=== PATIENT | female | born 1955 | race Caucasian/White ===

== ENCOUNTER → 2016-10-16 | Outpatient (CLI) | payer BC ==
[2014-05-19 10:30] VITALS: BP 108/63
[~2016-10-16] MED LIST: HYDR1TAB10 PO; LEVO500T59 PO; LEVO50TA5 PO; TAMS0.4C97 PO
--- NOTE | 2016-10-16 10:49 | RAD ---
DEXA scan 10/16/2016 Clinical history: Risk factors for osteoporosis. Postmenopausal female. Technique: DEXA of the lumbar spine and right hip was performed. FINDINGS: The mean bone mineral density of the lumbar spine is 1.067 g/sq cm. This corresponds to a T score of -0.9. This is consistent with borderline osteopenia. The mean bone mineral density of the right hip is 0.828 g/sq cm. This corresponds to a T score of -1.5. This is consistent with mild osteopenia. IMPRESSION: 1. Borderline osteopenia lumbar spine. 2. Mild osteopenia of the right hip. According to World Health Organization, the definition of osteoporosis and osteopenia for women is as follows: Normal = T score at or above -1.0 SD. Osteopenia = T score between -1.0 and -2.5 SD. Osteoporosis = T score at or below -2.5 SD.
--- NOTE | 2016-11-06 08:43 | RAD ---
DATE: 10/16/2016 EXAM: DIGITAL SCREEN BILAT W/CAD HISTORY: Screening COMPARISON: None. This study was interpreted with the benefit of Computerized Aided Detection (CAD). FINDINGS: Breast Density: SCATTERED The breast parenchyma shows scattered fibroglandular densities. Breast parenchyma level B. There is a group of punctate calcifications in the left breast. Coned compression magnification imaging and a ML view are suggested for additional evaluation. The right breast appears unremarkable. IMPRESSION: Calcifications left breast. Additional imaging suggested as outlined above BI-RADS CATEGORY: 0 INCOMPLETE: NEED ADDITIONAL IMAGING EVAULATION AND/OR PRIOR MAMMOGRAMS FOR COMPARISON RECOMMENDED FOLLOW-UP: ADD ADDITIONAL IMAGING PQRS compliance statement: Patient information was entered into a reminder system with a target due date soon for the next mammogram. Mammography is a sensitive method for finding small breast cancers, but it does not detect them all and is not a substitute for careful clinical examination. A negative mammogram does not negate a clinically suspicious finding and should not result in delay in biopsying a clinically suspicious abnormality. "Our facility is accredited by the [employer] Mammography Program."
== END | disposition home or self-care (01) ==
LOC: DXRAD 09:45
PROVIDERS: ATTEND Family Medicine
DX: Z12.31 Encounter for screening mammogram for malignant neoplasm of breast (principal); M85.88 Other specified disorders of bone density and structure, other site; E03.9 Hypothyroidism, unspecified; Z78.0 Asymptomatic menopausal state
CPT/HCPCS: 77080; G0202; 77067

== ENCOUNTER 2017-01-24 10:15 | Emergency (ER) | payer BC ==
[~2017-01-24] VITALS: Ht 162.6 cm; Wt 59.0 kg
[2017-01-24] MEDS ORDERED: ONDANSETRON PF 4 MG/2 ML VIAL. IV ONE ×2 (10:45)
[2017-01-24] MEDS ORDERED: MORPHINE SULFATE 2 MG/ML DISP.SYRIN. IV ONE (10:45)
[2017-01-24] MEDS ORDERED: IV NORMAL SALINE 1,000ML 1,000 ML IV ONE (10:45)
[2017-01-24 10:47] LABS: BASO # 0.1 x10^3/uL (0.0-0.2); BASO % 1 % (0-3); EOS # 0.1 x10^3/uL (0.0-0.7); EOS % 1 % (0-3); HEMATOCRIT 43.5 % (36.0-47.0); HEMOGLOBIN 14.9 g/dL (12.0-15.5); LYMPH # 2.1 x10^3/uL (1.0-4.8); LYMPH % 16 % (24-48); MEAN CORPUSCULAR HEMOGLOBIN 32 pg (25-35); MEAN CORPUSCULAR HGB CONC 34 g/dL (31-37); MEAN CORPUSCULAR VOLUME 94 fL (79-100); MONO # 0.7 x10^3/uL (0.0-1.1); MONO % 5 % (0-9); NEUT # 10.3 x10^3uL (1.8-7.7); NEUT % 78 % (31-73); PLATELET COUNT 238 x10^3/uL (140-400); RED BLOOD COUNT 4.65 x10^6/uL (3.50-5.40); RED CELL DISTRIBUTION WIDTH 13.6 % (11.5-14.5); WHITE BLOOD COUNT 13.2 x10^3/uL (4.0-11.0)
[2017-01-24 10:59] LABS: ALBUMIN 3.7 g/dL (3.4-5.0); ALBUMIN/GLOBULIN RATIO 0.8 (1.0-1.7); CALCIUM 9.4 mg/dL (8.5-10.1); CREATININE 0.9 mg/dL (0.6-1.0); GFR 63.9; POTASSIUM 3.7 mmol/L (3.5-5.1); TOTAL BILIRUBIN 0.5 mg/dL (0.2-1.0); TOTAL PROTEIN 8.4 g/dL (6.4-8.2)
[2017-01-24] MEDS ORDERED: IOHEXOL 240 MG/ML 50ML VIAL. ONE (11:04)
[2017-01-24 11:08] LABS: COLOR,URINE YELLOW
[2017-01-24 11:09] LABS: BACTERIA,URINE FEW /HPF (0-FEW); BILIRUBIN,URINE NEG (NEG); CLARITY,URINE CLOUDY; GLUCOSE,URINE NEG (NEG); HYALINE CASTS, URINE OCC /HPF; NITRITE,URINE NEG (NEG); RBC,URINE >40 /HPF (0-2); UROBILINOGEN,URINE 1 mg/dL (0.2 mg/dL)
[2017-01-24 11:10] LABS: SQUAMOUS EPITHELIAL CELL,UR FEW /LPF
[2017-01-24] MEDS ORDERED: IOHEXOL 240 MG/ML 50ML VIAL. PO ONE (11:30)
[2017-01-24] MEDS ORDERED: IOHEXOL 300 MG/ML 75 ML VIAL. IV ONE (11:30)
--- NOTE | 2017-01-24 12:24 | RAD ---
CT scan of the abdomen and pelvis with IV contrast: History: Abdominal pain since exam. Comparison:May 19, 2014. Procedure: Contiguous axial images of the abdomen and pelvis were performed after the administration of 75 cc of Isovue 370 IV contrast and oral contrast. Findings: Liver: Unremarkable. Spleen: Unremarkable. Pancreas: Unremarkable. Adrenal Glands: Unremarkable. Right Kidney: There is moderate right hydroureter and hydronephrosis with mild perinephric edema. There are tiny nonobstructive stones in the right renal pelvis. There has been prior cholecystectomy. The common bile duct is mildly dilated pelvis seen previously. . Left Kidney: Unremarkable. Aorta: Normal. There is no mass or lymphadenopathy. There is no free air. There is no free fluid. CT pelvis with contrast: The appendix is normal. The urinary bladder appears normal. The uterus and ovaries are not seen and could be small or surgically removed. There is a 5 mm stone in the distal right ureter. Impression: 1. 5 mm stone in the distal right ureter with moderate right hydroureter and right hydronephrosis and mild perinephric edema. Although this is felt to be acute is interesting that there was a very similar appearance in the prior study. 2. The common bile duct and the intrahepatic biliary tree are mildly dilated however, this was seen previously and is not unusual in a postcholecystectomy patient. PQRS Compliance Statement: One or more of the following individualized dose reduction techniques were utilized for this examination: 1. Automated exposure control 2. Adjustment of the mA and/or kV according to patient size 3. Use of iterative reconstruction technique
[2017-01-24 12:53] VITALS: BP 112/67
[2017-01-24] MEDS ORDERED: HYDR-971 PO (12:57)
[2017-01-24] MEDS ORDERED: TAMS0.4C97 PO (12:57)
[2017-01-24] MEDS ORDERED: SULF1TAB24 PO (12:57)
--- NOTE | 2017-01-24 12:57 | PHYS DOC ---
Past History Past Medical History: Kidney Stones, Other Past Surgical History: Cholecystectomy, Hysterectomy, Other Additional Smoking Information: / ppd Alcohol Use: None Drug Use: None Adult General Chief Complaint Chief Complaint: NAUSEA/VOMITING/DIARRHEA HPI HPI Patient is a 61 year old F who presents with RLQ abdominal pain that started this morning around 6am. She describes the pain as sharp and constant with wave like intense episodes that last about half an hour at a time. She does have a history of kidney stones however she feels that this is not similar to her previous kidney stone as it is in the front and not in her back. Her most recent kidney stone was May 192014. She denies urinary frequency, dysuria or urgency. She denies fever sweats or chills. She states that she's had normal bowel movements recently. She does have nausea. She has no other associated symptoms. She has no exacerbating or alleviating factors. Review of Systems Review of Systems Constitutional: Denies fever or chills [] Eyes: Denies change in visual acuity, redness, or eye pain [] HENT: Denies nasal congestion or sore throat [] Respiratory: Denies cough or shortness of breath [] Cardiovascular: No additional information not addressed in HPI [] GI: Negative except history of present illness : Denies dysuria or hematuria [] Musculoskeletal: Denies back pain or joint pain [] Integument: Denies rash or skin lesions [] Neurologic: Denies headache, focal weakness or sensory changes [] Endocrine: Negative except history of present illness All other systems were reviewed and found to be within normal limits, except as documented in this note. Family History Family History Noncontributory Current Medications Current Medications Medications reviewed Current Medications Medications (Trade) Dose Ordered Sig/Elen Start Time Stop Time Status Last Admin Dose Admin Iohexol (Omnipaque 240 Mg/ml) 50 ml 1X ONCE 01/24/17 11:30 01/24/17 11:31 DC 01/24/17 12:04 50 ML Iohexol (Omnipaque 300 Mg/ml) 75 ml 1X ONCE 01/24/17 11:30 01/24/17 11:31 DC 01/24/17 12:03 75 ML Morphine Sulfate (Morphine 2mg Syringe) 2 mg 1X ONCE 01/24/17 10:45 01/24/17 10:46 DC 01/24/17 10:43 2 MG Ondansetron HCl (Zofran) 4 mg 1X ONCE 01/24/17 10:45 01/24/17 10:46 DC 01/24/17 10:43 4 MG Sodium Chloride 1,000 ml @ 1,000 mls/hr 1X ONCE 01/24/17 10:45 01/24/17 11:44 DC 01/24/17 10:43 1,000 MLS/HR Allergies Allergies Allergies Coded Allergies Type Severity Reaction Last Updated Verified No Known Drug Allergies 05/19/14 No Physical Exam Physical Exam Constitutional: Well developed, well nourished, no acute distress, non-toxic appearance. [] HENT: Normocephalic, atraumatic, bilateral external ears normal, oropharynx moist, no oral exudates, nose normal. [] Eyes: EOMI, conjunctiva normal, no discharge. [] Neck: Normal range of motion, no tenderness, supple, no stridor. [] Cardiovascular:Heart rate regular rhythm, Lungs & Thorax: Bilateral breath sounds clear to auscultation [] Abdomen: Bowel sounds normal, soft, no masses, no pulsatile masses. Moderate RLQ TTP with radiating pain Skin: Warm, dry, no erythema, no rash. [] Back: No tenderness, no CVA tenderness. [] Extremities: No tenderness, no cyanosis, no clubbing, ROM intact, no edema. [] Neurologic: Alert and oriented X 3, normal motor function, normal sensory function, no focal deficits noted. [] Psychologic: Affect normal, judgement normal, mood normal. [] Current Patient Data Vital Signs Vital Signs Date Time Temp Pulse Resp B/P (MAP) Pulse Ox O2 Delivery O2 Flow Rate FiO2 01/24/17 11:18 66 20 127/73 (91) 99 Room Air 01/24/17 10:15 97.7 Lab Results Laboratory Tests Test 01/24/17 10:30 01/24/17 10:34 Urine Collection Type Unknown Urine Color Yellow Urine Clarity Cloudy Urine pH 6.5 Urine Specific [place] 1.015 Urine Protein Neg (NEG-TRACE) Urine Glucose (UA) Neg mg/dL (NEG) Urine Ketones (Stick) Neg mg/dL (NEG) Urine Blood Large (NEG) Urine Nitrite Neg (NEG) Urine Bilirubin Neg (NEG) Urine Urobilinogen Dipstick 1 mg/dL (0.2 mg/dL) Urine Leukocyte Esterase Trace (NEG) Urine RBC >40 /HPF (0-2) Urine WBC 5-10 /HPF (0-4) Urine Squamous Epithelial Cells Few /LPF Urine Transitional Epithelial Cells Few /LPF Urine Bacteria Few /HPF (0-FEW) Urine Hyaline Casts Occ /HPF Urine Mucus Slight /LPF White Blood Count 13.2 x10^3/uL (4.0-11.0) H Red Blood Count 4.65 x10^6/uL (3.50-5.40) Hemoglobin 14.9 g/dL (12.0-15.5) Hematocrit 43.5 % (36.0-47.0) Mean Corpuscular Volume 94 fL (79-100) Mean Corpuscular Hemoglobin 32 pg (25-35) Mean Corpuscular Hemoglobin Concent 34 g/dL (31-37) Red Cell Distribution Width 13.6 % (11.5-14.5) Platelet Count 238 x10^3/uL (140-400) Neutrophils (%) (Auto) 78 % (31-73) H Lymphocytes (%) (Auto) 16 % (24-48) L Monocytes (%) (Auto) 5 % (0-9) Eosinophils (%) (Auto) 1 % (0-3) Basophils (%) (Auto) 1 % (0-3) Neutrophils # (Auto) 10.3 x10^3uL (1.8-7.7) H Lymphocytes # (Auto) 2.1 x10^3/uL (1.0-4.8) Monocytes # (Auto) 0.7 x10^3/uL (0.0-1.1) Eosinophils # (Auto) 0.1 x10^3/uL (0.0-0.7) Basophils # (Auto) 0.1 x10^3/uL (0.0-0.2) Sodium Level 143 mmol/L (136-145) Potassium Level 3.7 mmol/L (3.5-5.1) Chloride Level 105 mmol/L (98-107) Carbon Dioxide Level 30 mmol/L (21-32) Anion Gap 8 (6-14) Blood Urea Nitrogen 16 mg/dL (7-20) Creatinine 0.9 mg/dL (0.6-1.0) Estimated GFR (Cockcroft-Gault) 63.9 BUN/Creatinine Ratio 18 (6-20) Glucose Level 96 mg/dL (70-99) Calcium Level 9.4 mg/dL (8.5-10.1) Total Bilirubin 0.5 mg/dL (0.2-1.0) Aspartate Amino Transferase (AST) 20 U/L (15-37) Alanine Aminotransferase (ALT) 21 U/L (14-59) Alkaline Phosphatase 87 U/L (46-116) Total Protein 8.4 g/dL (6.4-8.2) H Albumin 3.7 g/dL (3.4-5.0) Albumin/Globulin Ratio 0.8 (1.0-1.7) L EKG EKG [] Radiology/Procedures Radiology/Procedures CT abd/pelvis - 5mm R ureteral stone. Please refer to radiology report for details. Course & Med Decision Making Course & Med Decision Making Pertinent Labs and Imaging studies reviewed. (See chart for details) Given the history of possible prolonged right ureteral kidney stone and bacteria in the urine she was started on an antibiotic for UTI. This was done despite being asymptomatic due to increase risk for sepsis related to UTIs in the setting of kidney stones. Dragon Disclaimer Dragon Disclaimer This electronic medical record was generated, in whole or in part, using a voice recognition dictation system. Departure Departure: Impression: Primary Impression: Nephrolithiasis Disposition: 01 HOME, SELF-CARE Condition: STABLE Referrals: JOHN TANNER MD (PCP) Patient Instructions: Diet for Kidney Stones, Kidney Stones Additional Instructions: Lashay was seen in the emergency department for right lower quadrant abdominal pain. No emergency medical condition was found on history or physical exam. She did have labs and imaging which showed a 5 mm right-sided kidney stone and signs of possible urinary tract infection. She was given antibiotics to treat infection, pain medication and Flomax to assist with passing her stone. She was also given a screaming advised to screen her urine. She is advised follow-up with urology as soon as possible for further management. [facility] [place]. Their phone number is [phone]. Scripts Sulfamethoxazole/Trimethoprim (BACTRIM DS TABLET) 1 Each Tablet 1 TAB PO BID for 7 Days, #14 TAB Prov: KAMILAH FAYE MD 01/24/17 Hydrocodone Bit/Acetaminophen (NORCO 5-325 TABLET) 1 Each Tablet 1 TAB PO TID for 3 Days, #9 TAB Prov: KAMILAH FAYE MD 01/24/17 Tamsulosin Hcl (FLOMAX) 0.4 Mg Cap.er.24h 1 CAP PO DAILY for 14 Days, #14 CAP 11 Refills Prov: KAMILAH FAYE MD 01/24/17 KAMILAH FAYE MD Jan 24, 2017 12:57
[2017-01-24] MEDS ORDERED: TAMSULOSIN 0.4 MG CAP.ER.24H. PO ONE (13:15)
== END 2017-01-24 13:23 | disposition home or self-care (01) ==
LOC: ER 10:15
DX: N20.0 Calculus of kidney (principal); F17.210 Nicotine dependence, cigarettes, uncomplicated; Z87.442 Personal history of urinary calculi; Z90.49 Acquired absence of other specified parts of digestive tract; Z90.710 Acquired absence of both cervix and uterus
CPT/HCPCS: 36415; 74177; 80053; 81001; 85025; 87086; 96361; 96374; 96375; 99285; J2270; J2405; Q9966; Q9967; J7030

== ENCOUNTER 2017-12-28 17:48 | Emergency (ER) | payer BC ==
[~2017-12-28] VITALS: Ht 162.6 cm; Wt 62.9 kg
[~2017-12-28 17:48] MED LIST changes: +HYDR-971 PO; +SULF1TAB24 PO
--- NOTE | 2017-12-28 18:28 | EKG ---
[address] [address] Test Date: 2017-12-28 Test Time: 18:03:51 Pat Name: GENE CABAN Department: Room: Gender: F Systems Administration Analyst: : [id number] Requested By: LEAH MURRELL Order Number: [id number] Reading MD: Amari Sommers MD Measurements Intervals [place] Rate: 63 P: 50 NM: 154 QRS: -13 QRSD: 92 T: 25 QT: 444 QTc: 458 Interpretive Statements SINUS RHYTHM Electronically Signed On 12-31-2017 10:04:32 DIRECTOR ENERGY by Amari Sommers MD
--- NOTE | 2017-12-28 18:42 | PHYS DOC ---
Past History Past Medical History: Kidney Stones, Other Past Surgical History: Cholecystectomy, Hysterectomy, Other Alcohol Use: None Drug Use: None Adult General Chief Complaint Chief Complaint: HYPERTENSION HPI HPI Patient is a 62-year-old female who presents with complaint of acute onset of dizziness that started at about 4:30 this morning. Patient states that she was woken up this morning feeling nauseated. She states that when she went to get up out of bed, she realized that she was very dizzy, feeling like the room is spinning. She states that she had to hold onto the wall so that she wouldn't fall. She states that when the dizziness gets worse the nausea gets worse. She denies any headache. Patient also indicates that she noticed that her blood pressure has been much more elevated than his usual. She denies any chest pain or shortness of breath. Review of Systems Review of Systems Constitutional: Denies fever or chills [] Eyes: Denies change in visual acuity, redness, or eye pain [] Respiratory: Denies cough or shortness of breath [] Cardiovascular: No additional information not addressed in HPI [] GI: Denies abdominal pain. Admits to nausea. [] Neurologic: Denies headache, focal weakness or sensory changes. Complains of vertiginous dizziness. [] All other systems were reviewed and found to be within normal limits, except as documented in this note. Current Medications Current Medications Current Medications Medications (Trade) Dose Ordered Sig/[facility] Start Time Stop Time Status Last Admin Dose Admin Lorazepam (Ativan) 0.5 mg 1X ONCE 12/28/17 18:45 12/28/17 18:46 Meclizine HCl (Antivert) 25 mg PRN Q6HRS PRN 12/28/17 18:30 Ondansetron HCl (Zofran) 4 mg 1X ONCE 12/28/17 18:45 12/28/17 18:46 Sodium Chloride 1,000 ml @ 1,000 mls/hr Q1H 12/28/17 18:30 12/28/17 19:29 Allergies Allergies Allergies Coded Allergies Type Severity Reaction Last Updated Verified No Known Drug Allergies 05/19/14 No Physical Exam Physical Exam Constitutional: Well developed, well nourished, no acute distress, non-toxic appearance. [] HENT: Normocephalic, atraumatic, bilateral external ears normal, oropharynx moist, no oral exudates, nose normal. [] Eyes: PERRLA, EOMI, conjunctiva normal, no discharge. [] Neck: Normal range of motion, no tenderness, supple, no stridor. [] Cardiovascular:Heart rate regular rhythm [] Lungs & Thorax: Bilateral breath sounds clear to auscultation [] Abdomen: Bowel sounds normal, soft, no tenderness. [] Skin: Warm, dry, no erythema, no rash. [] Extremities: No tenderness, no cyanosis, no clubbing, ROM intact, no edema. [] Neurologic: Alert and oriented X 3, normal motor function, normal sensory function, no focal deficits noted. [] EKG EKG EKG demonstrates a normal sinus rhythm with rate of 63.[] Radiology/Procedures Radiology/Procedures [] Impressions: CT of the head without contrast demonstrates no acute intracranial abnormalities. Course & Med Decision Making Course & Med Decision Making Pertinent Labs and Imaging studies reviewed. (See chart for details) [] Dragon Disclaimer Dragon Disclaimer This electronic medical record was generated, in whole or in part, using a voice recognition dictation system. Departure Departure: Impression: Primary Impression: Benign paroxysmal positional vertigo Disposition: HOME, SELF-CARE Condition: STABLE Referrals: JOHN TANNER MD (PCP) Patient Instructions: Benign Positional Vertigo Scripts Metoclopramide Hcl (REGLAN) 10 Mg Tablet 1 TAB PO QID PRN for NAUSEA, #12 TAB Prov: LEAH MURRELL Jr. DO 12/28/17 Meclizine Hcl (MECLIZINE HCL) 25 Mg Tablet 1 TAB PO PRN TID for dizziness, #30 TAB Prov: LEAH MURRELL Jr. DO 12/28/17 Problem Qualifiers Primary Impression: Benign paroxysmal positional vertigo Laterality: unspecified laterality Qualified Codes: H81.10 - Benign paroxysmal vertigo, unspecified ear LEAH MURRELL Jr. DO Dec 28, 2017 18:42
[2017-12-28 18:47] LABS: BASO # 0.1 x10^3/uL (0.0-0.2); BASO % 1 % (0-3); EOS # 0.1 x10^3/uL (0.0-0.7); EOS % 1 % (0-3); HEMATOCRIT 40.5 % (36.0-47.0); HEMOGLOBIN 13.6 g/dL (12.0-15.5); LYMPH # 3.2 x10^3/uL (1.0-4.8); LYMPH % 39 % (24-48); MEAN CORPUSCULAR HEMOGLOBIN 32 pg (25-35); MEAN CORPUSCULAR HGB CONC 34 g/dL (31-37); MEAN CORPUSCULAR VOLUME 94 fL (79-100); MONO # 0.6 x10^3/uL (0.0-1.1); MONO % 8 % (0-9); NEUT # 4.2 x10^3uL (1.8-7.7); NEUT % 52 % (31-73); PLATELET COUNT 228 x10^3/uL (140-400); RED BLOOD COUNT 4.33 x10^6/uL (3.50-5.40); RED CELL DISTRIBUTION WIDTH 13.3 % (11.5-14.5); WHITE BLOOD COUNT 8.1 x10^3/uL (4.0-11.0)
[2017-12-28 18:59] LABS: ALBUMIN 3.4 g/dL (3.4-5.0); ALBUMIN/GLOBULIN RATIO 0.9 (1.0-1.7); CALCIUM 8.9 mg/dL (8.5-10.1); CREATININE 0.8 mg/dL (0.6-1.0); GFR 72.9; POTASSIUM 3.1 mmol/L (3.5-5.1); TOTAL BILIRUBIN 0.4 mg/dL (0.2-1.0); TOTAL PROTEIN 7.3 g/dL (6.4-8.2)
[2017-12-28] MEDS: IV NORMAL SALINE 1,000ML 1,000 ML IV SCH (19:02)
[2017-12-28] MEDS: ONDANSETRON PF 4 MG/2 ML VIAL. IV ONE (19:02)
[2017-12-28] MEDS: MECLIZINE 12.5 MG TABLET. PO PRN (19:03)
[2017-12-28] MEDS: LORazepam 2 MG/ML VIAL IV ONE (19:03)
--- NOTE | 2017-12-28 19:05 | RAD ---
CT brain without contrast. HISTORY: Headache, hypertension CT scan of brain was done without contrast. There is no intracranial hemorrhage or subdural hematoma. Intervals are normal in size. There is no mass or shift of the midline. An acute CVA is not identified. Sinuses are clear. IMPRESSION: 1. No intracranial hemorrhage or acute finding noted. PQRS Compliance Statement: One or more of the following individualized dose reduction techniques were utilized for this examination: 1. Automated exposure control 2. Adjustment of the mA and/or kV according to patient size 3. Use of iterative reconstruction technique Electronically signed by: Archie Glynn MD (12/28/2017 7:02 PM) [facility]
[2017-12-28 19:30] LABS: BACTERIA,URINE 0 /HPF (0-FEW); BILIRUBIN,URINE NEG (NEG); CLARITY,URINE HAZY; COLOR,URINE YELLOW; GLUCOSE,URINE NEG (NEG); HYALINE CASTS, URINE FEW /HPF; NITRITE,URINE NEG (NEG); SQUAMOUS EPITHELIAL CELL,UR FEW /LPF; UROBILINOGEN,URINE 1 mg/dL (0.2 mg/dL); WBC,URINE OCC /HPF (0-4)
[2017-12-28 19:31] LABS: AMORPHOUS SEDIMENT,UR PRESENT /HPF
[2017-12-28] MEDS: POTASSIUM CHLORIDE 20 MEQ TABLET.ER. PO ONE (20:07)
[2017-12-28] MEDS: diphenhydrAMINE HCL 25 MG CAPSULE PO ONE (20:08)
[2017-12-28] MEDS: METOCLOPRAMIDE HCL 10 MG/2 ML VIAL. IV ONE (20:08)
[2017-12-28] MEDS ORDERED: MECL25TA3 PO (20:42)
[2017-12-28] MEDS ORDERED: METO10TA81 PO (20:42)
[2017-12-28 20:51] VITALS: BP 127/65
== END 2017-12-28 20:50 | disposition home or self-care (01) ==
LOC: ER 17:48
DX: H81.13 Benign paroxysmal vertigo, bilateral (principal); R51 Headache; I10 Essential (primary) hypertension; Z87.442 Personal history of urinary calculi
CPT/HCPCS: 36415; 70450; 80053; 81001; 85025; 93005; 96361; 96374; 96375; 99285; J2060; J2405; J2765; J8597; Q0163; J7030

== ENCOUNTER 2020-01-28 13:07 | Emergency (ER) | payer BC ==
[~2020-01-28] VITALS: Ht 167.6 cm; Wt 61.8 kg
[~2020-01-28 13:07] MED LIST changes: +HYDR-3165 PO; -HYDR-971 PO; +MECL-75 PO; +METO10TA81 PO
[2020-01-28] MEDS ORDERED: MAGNESIUM CITRATE 296 ML SOLUTION. PO ONE (13:30)
[2020-01-28] MEDS ORDERED: SERT20OR (13:33)
[2020-01-28] MEDS ORDERED: POLY17PO5 PO (13:42)
[2020-01-28] MEDS ORDERED: LIDO30CR TP (13:42)
[2020-01-28] MEDS ORDERED: DOCU100C28 PO (13:42)
--- NOTE | 2020-01-28 13:42 | PHYS DOC ---
Past History Past Medical History: Anxiety, Hypothyroid Past Surgical History: Colectomy, Hysterectomy, Other Additional Past Surgical Histo: FINGER TUMOR REMOVED Alcohol Use: None Drug Use: None Adult General Chief Complaint Chief Complaint: CONSTIPATION HPI HPI Patient is a 64 yr old female with history of hypothyroidism, who presents to the ED today complaining of rectal pressure. Patient states she was at [facility] having a bowel movement when she had to stop because she felt there is pressure in the rectal region, she states she thought something is coming out of her rectum that is not a bowel movement. She state the pressure was moderate pain worse when she is bearing down. She states she has had previous history of hemorrhoids over 30 years ago when she delivered her daughter. Denies any abdominal pain. Denies any nausea vomiting. Denies any rectal bleeding. Review of Systems Review of Systems Constitutional: Denies fever or chills [] Eyes: Denies change in visual acuity, redness, or eye pain [] HENT: Denies nasal congestion or sore throat [] Respiratory: Denies cough or shortness of breath [] Cardiovascular: No additional information not addressed in HPI [] GI: Reports rectal pressure, rectal pain, denies abdominal pain, nausea, vomiting, bloody stools or diarrhea [] : Denies dysuria or hematuria [] Musculoskeletal: Denies back pain or joint pain [] Integument: Denies rash or skin lesions [] Neurologic: Denies headache, focal weakness or sensory changes [] All other systems were reviewed and found to be within normal limits, except as documented in this note. Current Medications Current Medications Current Medications Medications (Trade) Dose Ordered Sig/[facility] Start Time Stop Time Status Last Admin Dose Admin Lidocaine HCl (Xylocaine 2% Topical 5gm Tube) 1 karen 1X ONCE 01/28/20 13:45 01/28/20 13:46 Magnesium Citrate (Citroma) 296 ml 1X ONCE 01/28/20 13:30 01/28/20 13:31 UNV Allergies Allergies Allergies Coded Allergies Type Severity Reaction Last Updated Verified No Known Drug Allergies 05/19/14 No Physical Exam Physical Exam Constitutional: Well developed, well nourished, no acute distress, non-toxic appearance. [] HENT: Normocephalic, atraumatic, bilateral external ears normal, oropharynx moist, no oral exudates, nose normal. [] Eyes: PERRLA, EOMI, conjunctiva normal, no discharge. [] Neck: Normal range of motion, no tenderness, supple, no stridor. [] Cardiovascular:Heart rate regular rhythm, no murmur [] Lungs & Thorax: Bilateral breath sounds clear to auscultation [] Abdomen: Bowel sounds normal, soft, no tenderness, no masses, no pulsatile masses. [] External rectum with a garbanzo guidry size nonthrombosed external rectal hemorrhoid, no internal hemorrhoid. No bleeding noted. Hard stool felt at the lower aspect of the rectal vault Skin: Warm, dry, no erythema, no rash. [] Back: No tenderness, no CVA tenderness. [] Extremities: No tenderness, no cyanosis, no clubbing, ROM intact, no edema. [] Neurologic: Alert and oriented X 3, normal motor function, normal sensory function, no focal deficits noted. [] Psychologic: Affect normal, judgement normal, mood normal. [] Current Patient Data Vital Signs Vital Signs Date Time Temp Pulse Resp B/P (MAP) Pulse Ox O2 Delivery O2 Flow Rate FiO2 01/28/20 13:13 98.2 99 20 142/56 (84) 98 Room Air EKG EKG [] Radiology/Procedures Radiology/Procedures [] Heart Score Risk Factors: Risk Factors: DM, Current or recent (<one month) smoker, HTN, HLP, family history of CAD, obesity. Risk Scores: Risk Factors: DM, Current or recent (<one month) smoker, HTN, HLP, family history of CAD, obesity. Course & Med Decision Making Course & Med Decision Making Pertinent Labs and Imaging studies reviewed. (See chart for details) This is a 64-year-old female patient presenting to the ED today with an external hemorrhoid that she noted while having a bowel movement at [facility]. The he morrhoid is not thrombosed. I talked to patient about managing her stools/bowels to prevent constipation including the need to increase dietary fiber intake as well as water intake. MiraLAX recommended, stool softener recommended. Lidocaine cream provided. Follow-up with PCP and general surgeon Vazquez Disclaimer Vazquez Disclaimer This electronic medical record was generated, in whole or in part, using a voice recognition dictation system. Departure Departure: Impression: Primary Impression: Hemorrhoids Disposition: 01 DC HOME SELF CARE/HOMELESS Condition: STABLE Referrals: JOHN TANNER MD (PCP) follow up in the course of this week VALERIA VAUGHAN MD follow up in the next one week Patient Instructions: Constipation, Adult, Hemorrhoids Additional Instructions: You were evaluated in the emergency room and noted to have hemorrhoids. This is very common especially if your stools are hard. Consider softening your sto ols. Increase your dietary water as well as fiber intake. You can use [id number]-[id number] packs as well. You can use the prescribed lidocaine to reduce some of the pain and discomfort. Consider sitting in warm baths or sitz bath's twice a day. Follow-up with the provided general surgeon as well as your own doctor in the next 7 days. Scripts Lidocaine/Prilocaine (LIDOCAINE-PRILOCAINE CREAM) 30 Gm Cream..g. 1 KAREN TP UD, #30 GM 1 Refill Apply to rectal hemorrhoids Prov: ESTIVEN RAE APRN 01/28/20 Docusate Sodium (DOCUSATE SODIUM) 100 Mg Capsule 1 CAP PO BID for constipation for 7 Days, #14 CAP 0 Refills Prov: ESTIVEN RAE APRN 01/28/20 Polyethylene Glycol 3350 (MIRALAX) 17 Gm Powd.pack 1 PACKET PO DAILY for constipation for 2 Days, #2 PACKET 0 Refills dissolve in water Prov: ESTIVEN RAE APRN 01/28/20 Problem Qualifiers Primary Impression: Hemorrhoids Hemorrhoid type: unspecified Qualified Codes: K64.9 - Unspecified hemorrhoids ESTIVEN RAE APRN Jan 28, 2020 13:42
[2020-01-28] MEDS ORDERED: LIDOCAINE 2% TOPICAL JELLY 5GM TUBE. TP ONE (13:45)
[2020-01-28 13:49] VITALS: BP 111/66
== END 2020-01-28 13:53 | disposition home or self-care (01) ==
LOC: ER 13:07
DX: K64.4 Residual hemorrhoidal skin tags (principal); E03.9 Hypothyroidism, unspecified; Z90.49 Acquired absence of other specified parts of digestive tract; Z90.710 Acquired absence of both cervix and uterus
CPT/HCPCS: 99283

== ENCOUNTER → 2020-02-10 | Outpatient (CLI) | payer BC ==
[2020-01-28 13:49] VITALS: BP 111/66
[~2020-02-10] MED LIST changes: +DOCU100C28 PO; +LIDO30CR TP; +POLY17PO5 PO; +SERT20OR
== END ==
LOC: LAB 13:00
PROVIDERS: ATTEND Nurse Anesthetist, Certified Registered
DX: Z01.812 Encounter for preprocedural laboratory examination (principal); Z86.010 Personal history of colon polyps; Z20.828 Contact with and (suspected) exposure to other viral communicable diseases
CPT/HCPCS: U0003